=== PATIENT | male | born 1985 | race African-American/Black ===

== ENCOUNTER 2018-08-30 17:25 | Emergency (ER) | payer BC ==
[2018-08-30] MEDS ORDERED: Gentamicin 80 MG/2 ML VIAL ONE (17:59)
[2018-08-30] MEDS ORDERED: Azithromycin 250 MG TAB ONE (18:01)
[2018-09-02 21:50] LABS: Chlamydia by PCR Not Detected (NotDetected); GC by PCR Not Detected (NotDetected)
== END 2018-08-30 18:35 | disposition home or self-care (01) ==
LOC: SCSER 17:25
DX: L02.212 Cutaneous abscess of back [any part, except buttock and flank] (principal); J45.909 Unspecified asthma, uncomplicated; Z20.2 Contact with and (suspected) exposure to infections with a predominantly sexual mode of transmission
CPT/HCPCS: 87491; 87591; 96372; J1580